=== PATIENT | female | born 1965 | race Caucasian/White ===

== ENCOUNTER 2018-11-03 12:22 | Day surgery (SDC) | payer OTHER ==
[2018-11-03] MEDS ORDERED: LIDOCAINE 100 MG SYRINGE (14:48)
[2018-11-03] MEDS ORDERED: PROPOFOL 20 ML (14:48)
[2018-11-03] MEDS ORDERED: PROPOFOL 40 ML (15:16)
== END 2018-11-03 17:12 | disposition home or self-care (01) ==
LOC: GIL 12:22
DX: Z12.11 Encounter for screening for malignant neoplasm of colon (principal); K64.8 Other hemorrhoids; E66.9 Obesity, unspecified; Z68.30 Body mass index [BMI] 30.0-30.9, adult
CPT/HCPCS: 45378